=== PATIENT | male | born 1960 | race Caucasian/White ===

== ENCOUNTER 2016-03-20 17:42 | Emergency (ER) | payer OTHER ==
[~2016-03-20] VITALS: Ht 188 cm; Wt 102.1 kg
[~2016-03-20 17:42] MED LIST: ADVAIR 250-501 EACH INH; ASPIRIN EC325 MG PO; ATIVAN0.5 M1 PO; CARISOPRODOL350 MG PO; DOLOPHINE HCL10 M1 PO; FOLIC ACID 1 MG PO; GABAPENTIN300 M2 PO; LEADER FIBER1 POW PO; LIPITOR40 M1 PO; LISINOPRIL AND1 TA2 PO; LORAZEPAM1 MG PO; NALTREXONE HCL50 MG; OXYCODONE HCL10 M2 PO; OXYCODONE HYDRO10 M1 PO; PREDNISONE10 MG PO; PRILOSEC OTC20 M1 PO; PROAIR HFA0.09 MG/Ac INH; TRAZODONE50 MG PO; ZOFRAN ODT4 M1 SL
--- NOTE | 2016-03-20 18:40 | ED CARDIAC/CP/PALPITATIONS ---
History of Present Illness General Chief Complaint: Chest Pain Stated Complaint: CHEST PAIN Source: patient, old records Exam Limitations: no limitations Vital Signs & Intake/Output Vital Signs & Intake/Output Vital Signs Date Time Temp Pulse Resp B/P Pulse O2 O2 Flow FiO2 Ox Delivery Rate 03/20 1954 97.1 85 20 130/80 98 Room Air 03/208 92 03/20 1852 85 20 139/86 95 Room Air 03/20 1805 96.6 88 20 145/83 93 Room Air Allergies Coded Allergies: Penicillins (UNKNOWN PER PT 03/20/16) Reconcile Medications Albuterol Sulfate (Proair Hfa) 0.09 MG/Actuation JHON 2 PUFF INH Q4HR PRN DYSPNEA Aspirin E.c. (Ecotrin) 325 MG TAB 1 TAB PO DAILY HEART HEALTH (Reported) Atorvastatin Calcium (Lipitor) 40 MG TABLET 1 TAB PO QAM CHOLESTEROL ( Reported) DEXTRIN (Fiber) (Unknown Strength) POWDER (Unknown Dose) PO DAILY SUPPLEMENT (Reported) Fluticasone/Salmeterol (Advair 250-50 Diskus) 1 EACH BLST.W.DEV 1 PUF INH BID ASTHMA (Reported) Gabapentin 300 MG CAPSULE 1 CAP PO DAILY NERVE PAIN (Reported) LISINOPRIL/HYDROCHLOROTHIAZIDE (Lisinopril-Hctz 20-25 MG Tab) 20 MG-25 MG TABLET 1 TAB PO DAILY BP (Reported) Lorazepam (Ativan) 1 MG TABLET 1 TAB PO TID PRN chest pain Methadone HCl (Dolophine HCl) 10 MG TABLET 2 TAB PO BID PAIN CONTROL ( Reported) Triage Note: TRIAGE: PT TO ER C/C PAIN TO L CHEST AND LOW BACK, INTERMITTENT X MONTHS WORSE LAST FEW DAYS. -N/V. REPORTS WHEN HE LAYS BACK HE FEELS LIKE HE CAN'T BREATH WELL. HAS HX OF SLEEP APNEA AND USES CPAP. STATES +COLD SWEAT ALL DAY TODAY. HAD EKG DONE IN [place] PRIOR TO TRIAGE. Aspirin Today: 325 mg x 1 HPI: Patient is a 55-year-old male presents complaining of left-sided chest pain intermittent. Patient reports he has had pain for approximately one month but the pain is worsened over the past 3-4 days. Pain is a tightness/dull/throbbing pain that is currently mild, worsens with exertion. Episodes last approximately 1-5 minutes and occur 3-4 times an hour. Positive diaphoresis earlier today at rest. Positive cough and dyspnea. Patient has a history of sleep apnea, reports that he has been having difficulty sleeping over the past couple of days. History of pulmonary embolism, reports that he was on anticoagulation up until about 1.5 years ago and is now currently on 325 mg of aspirin daily. Patient has taken his aspirin dose already today. Positive anxiety. Denies lower extremity edema, palpitations. (CARMITA LOVE) Triage Nurses Notes Reviewed? yes (BAYLEE MATTHEWS,CLARIBEL Avila) Past History Travel History Traveled to [place] past 21 day No Medical History Any Pertinent Medical History? see below for history Neurological: CVA 09/18/09 EENT: NONE Cardiovascular: hypertension Respiratory: obstructive sleep apnea, pulmonary embolism, USES CPAP Gastrointestinal: NONE Hepatic: NONE Renal: NONE Musculoskeletal: CHRONIC BACK PAIN Psychiatric: alcohol dependence, depression Endocrine: NONE Blood Disorders: NONE Cancer(s): NONE CONCRETE BATCHER/Reproductive: NONE Tetanus Vaccine: 07/03/14 Surgical History Surgical History: non-contributory, N Psychosocial History Who do you live with Spouse What is your primary language Sami Tobacco Use: Current Daily Use Daily Tobacco Use Amount/Type: => 5 Cigarettes daily ETOH Use: denies use Illicit Drug Use: [facility] (CARMITA LOVE) Family History Hx Contributory? No (BAYLEE MATTHEWS,CLARIBEL Avila) Review of Systems Review of Systems Constitutional: Reports: no symptoms. EENTM: Reports: no symptoms. Respiratory: Reports: see HPI. Cardiovascular: Reports: chest pain. GI: Reports: no symptoms. Genitourinary: Reports: no symptoms. Musculoskeletal: Reports: no symptoms. Skin: Reports: no symptoms. Neurological/Psychological: Reports: no symptoms. Hematologic/Endocrine: Reports: no symptoms. Immunologic/Allergic: Reports: no symptoms. All Other Systems: Reviewed and Negative (BAYLEE MATTHEWS,CLARIBEL Avila) Physical Exam Physical Exam General Appearance: well developed/nourished, alert, awake Head: atraumatic, normal appearance Eyes: Bilateral: normal appearance, PERRL, EOMI. Ears, Nose, Throat: normal pharynx, normal ENT inspection, hearing grossly normal Neck: normal inspection, supple, full range of motion Respiratory: wheezing (MILD DIFFUSE EXPIRATORY), mild left sided chest wall tenderness Cardiovascular: regular rate/rhythm (no murmur appreciated) Gastrointestinal: normal bowel sounds, soft, non-tender Back: normal inspection Extremities: normal inspection, normal capillary refill, normal range of motion Neurologic/Psych: no motor/sensory deficits, awake, alert, oriented x 3, normal gait, normal mood/affect Skin: intact, normal color, warm/dry Lymphatic: no anterior cervical joshua (STANLEY NGUYEN,CARMITA) Core Measures ACS in differential dx? No Severe Sepsis Present: No Septic Shock Present: No (BAYLEE MATTHEWS,CLARIBEL Avila) Progress Plan of Care: Orders Procedure Date/time Status TROPONIN LEVEL 03/20 2100 Complete Telemetry/Certified Respiratory Therapist 03/20 1840 Active TROPONIN LEVEL 03/20 1840 Complete PARTIAL THROMBOPLASTIN TIME 03/20 1840 Complete PROTHROMBIN TIME 03/20 1840 Complete D-DIMER 03/20 1840 Complete COMPREHENSIVE METABOLIC PANEL 03/20 1840 Complete CBC WITHOUT DIFFERENTIAL 03/20 1840 Complete EKG 03/20 174 Active Current Medications Sig/Jozef Start time Last Medication Dose Stop Time Status Admin Hydromorphone HCl 1 MG ONCE ONE 03/20 1914 CAN (Dilaudid) 03/20 1915 Nitroglycerin 0.4 MG ONCE ONE 03/20 1844 CAN (Nitrostat) 03/20 1845 Laboratory Tests 03/20/16 2145: Troponin I < 0.01 03/20/16 1850: Anion Gap 15, Estimated GFR > 60, BUN/Creatinine Ratio 21.7, Glucose 96, Calcium 9.8, Total Bilirubin 0.6, AST 20, ALT 34, Alkaline Phosphatase 72, Troponin I < 0.01, Total Protein 7.3, Albumin 4.4, Globulin 2.9, Albumin/Globulin Ratio 1.5, PT 11.0, INR 1.05, APTT 26, D-Dimer 218, CBC w Diff NO MAN DIFF REQ, RBC 4.79, MCV 90.8, MCH 30.5, RDW 12.6, MPV 7.4, Gran % 60.8, Lymphocytes % 31.1, Monocytes % 7.4, Eosinophils % 0.3, Basophils % 0.4, Absolute Granulocytes 4.0, Absolute Lymphocytes 2.1, Absolute Monocytes 0.5, Absolute Eosinophils 0, Absolute Basophils 0, PUBS MCHC 33.6 1899: Discussed with Dr. West. 1909: Discussed with Dr. Hoffman: patient had normal coronaries and LV function on cardiac catheterization 4 months ago. If troponins negative then can be worked up further outpatient. Patient taken off his anticoagulation by his primary doctor within the past year or so due to multiple falls. Obtain d-dimer and if needed CTA to rule out pe (CARMITA LOVE) Diagnostic Imaging: Viewed by Me: Radiology Read. Discussed w/RAD: Radiology Read. CXR Impression: PATIENT: SJ DIAS JR PRESENT AGE: 55 PATIENT ACCOUNT NO: [id number] : 61 LOCATION: [facility] ORDERING PHYSICIAN: CARMITA NGUYEN SERVICE DATE: 03/20/16 EXAM TYPE: RAD - XRY-PORTABLE CHEST XRAY EXAMINATION: XR PORTABLE CHEST CLINICAL INFORMATION: Chest pain in a 55-year-old male. COMPARISON: Portable chest x-ray on 2015. TECHNIQUE: AP portable semierect view of the chest. FINDINGS: The heart is normal in size. Lungs are symmetrically aerated and clear showing no evidence of acute pulmonary parenchymal or pleural disease. IMPRESSION: Unremarkable examination. DICTATED BY: YAIR OH MD DATE/TIME DICTATED:03/20/161954 AOC DIRECTOR COMBAT PLANS OFFICER:SWEETIE DATE/TIME TRANSCRIBED:03/20/161954 CONFIDENTIAL, DO NOT COPY WITHOUT APPROPRIATE AUTHORIZATION. <Electronically signed in Other Vendor System> SIGNED BY: YAIR OH MD 03/20/161999 Initial ED EKG: sinus rhythm 94 bpm borderline left axis deviation, ST depression in lateral leads Hand-Off Endorsed To: CLARIBEL WEST MD Endorsed Time: 2016 Pending: labs (repeat troponin) (CARMITA LOVE) Differential Diagnosis: AMI, musculoskeletal pain, pneumonia, pneumothorax, pulmonary embolism, unstable angina Comments: 03/20/2016 10:47:51 PM patient signed out to me by PATRICK at shift guide changer. Since case was discussed with Dr. Hoffman who confirmed that the patient had a normal cardiac catheterization study months ago. The patient's evaluation is unrevealing. I have updated Sj on his test results and he offers no complaint at this point. He has asked for a short course of Ativan. He states Ativan has helped him with prior episodes of this nature. (CLARIBEL WEST MD) Departure Departure Condition: Stable Referrals: KARMEN PRYOR MD (PCP/Family) Departure Forms: Customer Survey General Discharge Information Prescriptions: Current Visit Scripts Lorazepam (Ativan) 1 TAB PO TID PRN chest pain #10 TAB (CARMITA LOVE) Departure Disposition: HOME OR SELF CARE Clinical Impression Primary Impression: Atypical chest pain Additional Instructions: Ativan as prescribed. Follow-up with your primary care doctor this week for reevaluation. Return if any concerns or sudden worsening. PA/BENDING SHED WORKER Co-Sign Statement Statement: ED Attending supervision documentation- [X] I saw and evaluated the patient. I have also reviewed all the pertinent lab results and diagnostic results. I agree with the findings and the plan of care as documented in the PA's/BENDING SHED WORKER's documentation. [] I have reviewed the ED Record and agree with the PA's/BENDING SHED WORKER's documentation. [] Additions or exceptions (if any) to the PAs/BENDING SHED WORKER's note and plan are summarized below: [] (BAYLEE MATTHEWS,CLARIBEL Avila) Critical Care Note Critical Care Note Critical Care Time: non-applicable (BAYLEE MATTHEWS,CLARIBEL Avila)
[2016-03-20 19:13] LABS: ABSOLUTE BASOPHIL COUNT 0 /CUMM (0.0-0.2); ABSOLUTE EOSINOPHIL COUNT 0 /CUMM (0.0-0.7); ABSOLUTE LYMPH COUNT 2.1 /CUMM (1.2-3.4); ABSOLUTE MONOCYTE COUNT 0.5 /CUMM (0.10-0.60); BASOPHIL % 0.4 % (0.0-2.0); EOSINOPHIL % 0.3 % (0-5); GRANULOCYTE % 60.8 % (42.2-75.2); HEMATOCRIT 43.5 % (42-52); MEAN CORPUSCULAR HGB 30.5 PG (27.0-31.0); MEAN CORPUSCULAR HGB CONC 33.6 G/DL (33.0-37.0); MEAN CORPUSCULAR VOLUME 90.8 FL (80.0-94.0); MEAN PLATELET VOLUME 7.4 FL (7.4-10.4); PLATELET COUNT 233 /CUMM (130-400); RBC DISTRIBUTION WIDTH 12.6 % (11.5-14.5); RED BLOOD CELL CT 4.79 /CUMM (4.70-6.10); WHITE BLOOD CELL COUNT 6.6 /CUMM (4.8-10.8)
[2016-03-20 19:22] LABS: PTT 26 SEC (25-37)
--- NOTE | 2016-03-20 20:00 | RADIOLOGY REPORT ---
EXAMINATION: XR PORTABLE CHEST CLINICAL INFORMATION: Chest pain in a 55-year-old male. COMPARISON: Portable chest x-ray on 10/18/2015. TECHNIQUE: AP portable semierect view of the chest. FINDINGS: The heart is normal in size. Lungs are symmetrically aerated and clear showing no evidence of acute pulmonary parenchymal or pleural disease. IMPRESSION: Unremarkable examination.
[2016-03-20] MEDS ORDERED: ATIVAN1 M1 PO (22:53)
[2016-03-20 23:01] VITALS: BP 132/74
== END 2016-03-20 23:01 ==
LOC: ERH 17:42
PROVIDERS: Physician Assistant
DX: R07.89 Other chest pain (principal)
CPT/HCPCS: 1263; 93005; 93010